=== PATIENT | female | born 2000 | race Two or more races ===

== ENCOUNTER 2022-11-08 16:01 | Outpatient (REF) | payer MEDICAID, SELFPAY ==
--- NOTE | ~2022-11-08 | XR_ITS ---
EXAMINATION: XR LUMBOSACRAL SPINE CLINICAL INFORMATION: Low back pain after falling COMPARISON: None TECHNIQUE: Three views of the lumbosacral spine. FINDINGS: No fracture or destructive lesion or alignment abnormality. XR/XR lumbar spine 2-3V IMPRESSION: Unremarkable examination.
== END 2022-11-08 16:02 | disposition home or self-care (01) ==
LOC: HO.XRAY 16:01
PROVIDERS: Visit Provider Emergency Medicine
DX: M54.41 Lumbago with sciatica, right side (principal); M54.2 Cervicalgia; Z91.81 History of falling
CPT/HCPCS: 72100